=== PATIENT | male | born 1945 | race Caucasian/White ===

== ENCOUNTER → 2019-11-13 | Outpatient (CLI) | payer MEDICARE ==
[~2019-11-13] MED LIST: AMLO2.5T4 PO; ASPI-555 PO; LISI1TAB28 PO; MULT-1203 PO; OMEP20TA2 PO; PARO10TA71 PO; SIMV-46 PO; VIT-12 PO; [UNRECOGNIZED DRUG - CODE] PO; coq-10 PO
== END | disposition home or self-care (01) ==
LOC: OIH 10:17
PROVIDERS: ATTEND Neurological Surgery
DX: M47.816 Spondylosis without myelopathy or radiculopathy, lumbar region (principal); M43.26 Fusion of spine, lumbar region; M51.37 Other intervertebral disc degeneration, lumbosacral region
CPT/HCPCS: 72100